=== PATIENT | male | born 1950 | race Caucasian/White ===

== ENCOUNTER → 2022-02-06 11:23 | Outpatient (CLI) | payer OTHER, SELFPAY ==
[2022-02-06 15:17] LABS: COVID19 -Nasal RAPID Negative (Negative)
== END ==
PROVIDERS: Referring Provider Internal Medicine Gastroenterology; Visit Provider Nurse Practitioner Family
DX: Z20.822 Contact with and (suspected) exposure to COVID-19 (principal)
CPT/HCPCS: 87635; C9803

== ENCOUNTER 2022-02-09 08:17 | Day surgery (SDC) | payer OTHER, SELFPAY ==
--- NOTE | 2022-02-09 | PATH_ITS ---
[facility] Accession Number: [id number] . 01 Material submitted: . colon - TRANSVERSE COLON POLYP . 02 Diagnosis: Transverse Colon Polyp, Biopsy: Tubular adenoma. MRV 02/12/2022 1225 Local . 02 Electronically signed: . Crescencio Blount MD, PhD, Pathologist NPI- [id number] . 01 Gross description: . TRANSVERSE COLON POLYP: Received in formalin is 1 fragment(s) of browne, soft tissue measuring 0.1 x 0.1 x 0.1 cm submitted entirely in 1 cassette(s) /CPE 02/11/2022 1019 Local . 02 Pathologist provided ICD-10: D12.3 . 02 CPT . 952161 Specimen Comment: A courtesy copy of this report has been sent to [phone] Performed at: 01 [facility] [address] [id number] MD Drew Cary MD Phone: [phone] Performed at: [facility] [address] [place], [place] [id number] MD Sailaja Taylor MD Phone: [phone]
[2022-02-09 08:39] VITALS: BMI 29.0
[2022-02-09 08:51] VITALS: BP 177/99; PULSE 82; RESP 14; TEMP 36.6; O2SAT 96
[2022-02-09] MEDS: SODIUM CHLORIDE 0.9% 1,000 ML 84 ML IV (08:54)
--- NOTE | 2022-02-09 09:21 | PM.HP.1 ---
History of Present Illness History of Present Illness Date Patient Seen: 02/09/22 Time Patient Seen: 09:21 Chief complaint: SDC Narrative: I reviewed my note from December 30 no changes. Patient History Medical History Hypertension Prostate cancer Surgical History History of hip surgery History of prostate surgery Hx of colonoscopy with polypectomy Family & Social History Social History: household members spouse Tobacco & Substance use: Smoking Status Never smoker alcohol intake current alcohol intake frequency holiday/special occasion Substance Use Type does not use Meds Home Medications and Allergies Home Medications Medication Instructions Recorded Confirmed Type lisinopril 20 1 tab PO DAILY 02/09/22 02/09/22 History mg-hydrochlorothiazide 12.5 mg tablet Allergies Allergy/AdvReac Type Severity Reaction Status Date / Time No Known Drug Allergies Allergy Verified 02/09/22 08:12 Review of Systems Review of Systems ROS: Yes All systems reviewed with the patient and are negative except as otherwise documented Exam Vital Signs (past 8 hours): - 02/09/22 08:51 Temperature 97.8 F Pulse Rate 82 Respiratory Rate 14 Blood Pressure 177/99 H Pulse Oximetry 96 Oxygen Delivery Method Room Air Const General: cooperative and comfortable Orientation: alert HENMT Head: normocephalic Ears: external ears normal Nose: external nose normal Face and sinus: normal facial exam Mouth: oral mucosae normal Eyes General: appearance normal, both eyes and all related structures Neck Neck: normal visual inspection Chest Chest: normal inspection of the chest Resp Effort & Inspection: normal respiratory effort Cardio Rate: regular rate GI Inspection: normal to inspection Skin General: no rashes or lesions noted and No jaundice Neuro General: patient alert and moves all extremities Cognition: normal cognition Speech: speech normal Extrem General: no pedal edema Psych Appearance: grossly normal Assessment & Plan Assessment & Plan narrative: 71-year-old male with a personal history of colon polyps. Colonoscopy is planned for today. Time Spent With Patient Critical Care time: I spent a total of [] minutes of critical care time on this patient's care today; this time is exclusive of procedural time.
--- NOTE | 2022-02-09 09:23 | PM.PREOP ---
Pre-operative Note COVID-19 COVID-19 status: Negative Result date/Date tested (Pos, Neg/Pending): 02/06/22 Criteria for continued procedure: Possibility delay results in more complex future surgery or treatment Interval Note History & Physical reviewed/Exam performed by Physician: Yes Changes to H&P: No ASA Class (for procedural sedation): II
--- NOTE | 2022-02-09 10:33 | PM.OP.COLON ---
Operative Date/Time/Diagnoses Date of procedure: 02/09/22 Time of procedure: 10:33 Pre-op diagnosis: Personal history of colon polyps Post-op diagnosis: same Procedure & Clinicians Study performed: Colonoscopy Same procedure as scheduled: Yes Indications: Personal history of colon polyps Surgeon: Thomas Richards Procedure Notes SCOAP/Timeout: Done Procedure in detail: After the risks and benefits were explained, written and verbal informed consent was obtained. The patient was brought into the procedure room and placed into the left lateral decubitus position. Please see nurse lye machine operator notes for sedation details. Digital rectal examination was accomplished. The scope was introduced into the patient and advanced under direct visualization to the cecum as identified by the appendiceal orifice and ileocecal valve. The scope was slowly withdrawn to carefully examine the mucosa for any defects or lesions. Comprehensive imaging was accomplished throughout the rectum including the dentate line. The colon was decompressed, the scope was then removed from the patient who tolerated the procedure well. Adult colonoscope Bowel prep adequate Scope withdrawal time: 11 minutes Sedation minutes: 27 Specimen(s): none sent Impression: The patient had a slightly challenging navigation with a tendency towards scope looping. With use of the stiffener and abdominal pressure we were able to overcome this and achieve cecal intubation. No significant polyps mass lesions or inflammatory features identified throughout. Patient had grade 3 and grade 4 nonbleeding nonthrombosed hemorrhoids. Endoscopic diagnosis 1. Grade 3 to grade 4 hemorrhoids 2. Otherwise visually unremarkable colonoscopy to cecum Post-procedure Plan for aftercare: Consider repeat colonoscopy in 7-10 years time considering past history of colon polyps. Disposition: PACU
[2022-02-09 10:36] VITALS: BP 97/53; PULSE 80; RESP 17; TEMP 36.1; O2SAT 97
[2022-02-09 10:40] VITALS: BP 85/54; PULSE 83; RESP 14; O2SAT 97
[2022-02-09 10:45] VITALS: BP 116/55; PULSE 92; RESP 14; O2SAT 97
[2022-02-09 10:51] VITALS: BP 128/74; PULSE 84; RESP 16; O2SAT 97
[2022-02-09 10:56] VITALS: BP 142/80; PULSE 85; RESP 16; O2SAT 96
== END 2022-02-09 11:05 | disposition home or self-care (01) ==
PROVIDERS: Referring Provider Internal Medicine Gastroenterology; Visit Provider Internal Medicine Gastroenterology
PROC: 0DJD8ZZ Inspection of Lower Intestinal Tract, Via Natural or Artificial Opening Endoscopic (ICD-10-PCS; CPT 45378; principal; 2022-02-09 09:30)
DX: Z12.11 Encounter for screening for malignant neoplasm of colon (principal); Z86.010 Personal history of colon polyps; K64.3 Fourth degree hemorrhoids; D12.3 Benign neoplasm of transverse colon
CPT/HCPCS: 45380; J2704